=== PATIENT | male | born 1935 | race Caucasian/White ===

== ENCOUNTER 2017-07-25 07:19 | Emergency (ER) | payer BC ==
[2017-07-25 07:26] VITALS: BP 178/78; PULSE 74; TEMP 98; BMI 27.8
--- NOTE | 2017-07-25 08:19 | PDOC ---
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 Patient history is unreliable secondary to his dementia. According to the nursing facility and to the nurse aide who have spoken to, the patient without's legs gave out and the patient fell and hit the back of his head. Does not appear to have loss of conscious. Denies other injuries. Patient himself insists that he has no injuries and denies any pain. I have spoken to the patient's healthcare proxy Fabi Templecielo [phone] who states that the patient has had multiple hospitalizations for prior issues such as VTach and falls. Patient does take aspirin. States that she would like us to do whatever it takes to evaluate the patient. Past History - Past Medical History Allergies/Adverse Reactions: Allergies Allergy/AdvReac Type Severity Reaction Status Date / Time No Known Allergies Allergy Verified 07/25/17 07:21 Home Medications: Ambulatory Orders Amiodarone HCl [Cordarone -] 200 mg PO DAILY 07/25/17 Amlodipine Besylate [Norvasc -] 5 mg PO DAILY 07/25/17 Aspirin [ASA -] 81 mg PO DAILY 07/25/17 Atorvastatin Calcium 40 mg PO DAILY 07/25/17 Carbidopa/Levodopa 25/100 [Sinemet 25/100 -] 1 each PO BID 07/25/17 Cyanocobalamin [Vitamin B12 -] 1,000 mcg PO DAILY 07/25/17 Docusate Sodium [Colace -] 100 mg PO TID 07/25/17 Famotidine [Pepcid] 20 mg PO DAILY 07/25/17 Furosemide [Lasix] 20 mg PO DAILY 07/25/17 Levothyroxine [Synthroid -] 25 mcg PO DAILY 07/25/17 Lisinopril [Prinivil] 20 mg PO DAILY 07/25/17 Mexiletine HCl 200 mg PO DAILY 07/25/17 Potassium Chloride [K-Dur -] 20 meq PO DAILY 07/25/17 Rivastigmine Tartrate [Rivastigmine] 4.6 mg TD DAILY 07/25/17 Sennosides [Senna] 8.6 mg PO ASDIR 07/25/17 COPD: No Dementia: Yes Other medical history: JUAN, - Suicide/Smoking/Psychosocial Hx Smoking History: Unknown if ever smoked Hx Alcohol Use: No Drug/Substance Use Hx: No Substance Use Type: None Review of Systems - Review of Systems Able to Perform ROS?: Yes Comments:: 07/25/17 08:19 GENERAL/CONSTITUTIONAL: No fever, weakness. +Fall HEAD, EYES, EARS, NOSE AND THROAT: No change in vision. No ear pain or discharge. No sore throat. CARDIOVASCULAR: No chest pain or shortness of breath. RESPIRATORY: No cough, wheezing, or hemoptysis. GASTROINTESTINAL: No abdominal pain, nausea, vomiting, diarrhea, or decreased PO intolerance. GENITOURINARY: No dysuria, frequency, or change in urination. MUSCULOSKELETAL: No joint or muscle swelling or pain. No neck or back pain. SKIN: No rash NEUROLOGIC: No headache, vertigo, loss of consciousness, or change in strength/ sensation. ENDOCRINE: No increased thirst. No abnormal weight change. HEMATOLOGIC/LYMPHATIC: No anemia, easy bleeding, or history of blood clots. ALLERGIC/IMMUNOLOGIC: No hives or skin allergy. *Physical Exam - Vital Signs Last Vital Signs Temp Pulse Resp BP Pulse Ox 98 F 74 18 178/78 98 07/25/17 07:21 07/25/17 07:21 07/25/17 07:21 07/25/17 07:21 07/25/17 07:21 - Physical Exam Comments: 07/25/17 08:19 GENERAL: Awake, alert, and oriented x 2. in no acute distress. HEAD: No signs of trauma EYES: PERRLA, EOMI, sclera anicteric, conjunctiva clear ENT: Auricles normal inspection, NECK: Normal ROM LUNGS: Breath sounds equal, clear to auscultation bilaterally. No wheezes, and no crackles HEART: Regular rate and rhythm, normal S1 and S2, no murmurs, rubs or gallops. Pacemaker/AICD on right side of chest ABDOMEN: Soft, nontender, normoactive bowel sounds. No guarding, no rebound. No masses EXTREMITIES: Normal range of motion, no edema. No clubbing or cyanosis. No cords, erythema, or tenderness NEUROLOGICAL: Cranial nerves II through XII grossly intact. SKIN: Warm, Dry, normal turgor, no rashes or lesions noted. ED Treatment Course - RADIOLOGY Radiology Studies Ordered: Category Date Time Status HEAD CT WITHOUT CONTRAST [CT] Stat CT Scan 07/25/17 07:56 Ordered Medical Decision Making - Medical Decision Making 07/25/17 08:20 Vital Signs Temp Pulse Resp BP Pulse Ox 98 F 74 18 178/78 98 07/25/17 07:21 07/25/17 07:21 07/25/17 07:21 07/25/17 07:21 07/25/17 07:21 Mechanical fall. Pt is at baseline. Will perform head CT and if negative, pt can be discharged back to [facility]. I had spoken to the HCP Fabi Guo who agrees with the plan. 07/25/17 08:32 CT head with no acute changes. Results discussed with HCP Fabi Guo. [facility] updated on results and accepted patient back to the facility. *DC/Admit/Observation/Transfer Diagnosis at time of Disposition: Closed head injury Qualifiers: Encounter type: initial encounter Qualified Code(s): S09.90XA - Unspecified injury of head, initial encounter - Discharge Dispostion Disposition: [facility] Condition at time of disposition: Stable Admit: No - Referrals - Patient Instructions Printed Discharge Instructions: DI for Closed Head Injury Additional Instructions: The CT head showed no acute findings. Please follow up with your doctors. - Post Discharge Activity
== END 2017-07-25 09:03 ==
LOC: FER 07:19
DX: S09.90XA Unspecified injury of head, initial encounter (principal); W19.XXXA Unspecified fall, initial encounter; Z91.81 History of falling; Y93.9 Activity, unspecified; Y92.129 Unspecified place in nursing home as the place of occurrence of the external cause; I12.9 Hypertensive chronic kidney disease with stage 1 through stage 4 chronic kidney disease, or unspecified chronic kidney disease; N18.9 Chronic kidney disease, unspecified; I50.9 Heart failure, unspecified; Z95.810 Presence of automatic (implantable) cardiac defibrillator; R00.0 Tachycardia, unspecified; E78.5 Hyperlipidemia, unspecified; E03.9 Hypothyroidism, unspecified; Z79.82 Long term (current) use of aspirin; F03.90 Unspecified dementia, unspecified severity, without behavioral disturbance, psychotic disturbance, mood disturbance, and anxiety
CPT/HCPCS: 70450-TC; 99281-25